=== PATIENT | female | born 1960 | race Two or more races ===

== ENCOUNTER 2018-12-29 18:16 | Emergency (ER) | payer OTHER ==
[~2018-12-29] VITALS: Ht 160 cm; Wt 83.9 kg
[~2018-12-29 18:16] MED LIST: ACYC800T PO; GABA300C18 PO; HYDR-3164 PO
[2018-12-29 19:15] VITALS: BP 112/56
--- NOTE | 2018-12-29 20:08 | RAD ---
Indication: Fell from a chair, pain to the left mid posterior ribs TECHNIQUE: PA chest and 3 views of the left wrist COMPARISON: None FINDINGS: Heart is normal in size. Lungs are clear. No pneumothorax or pleural effusion. No acute fractures. IMPRESSION: No acute findings. Electronically signed by: Jonnathan Adkins DO (12/29/2018 8:05 PM) [facility]
[2018-12-29] MEDS ORDERED: CYCL5TAB PO (20:23)
[2018-12-29] MEDS ORDERED: TRAM50TA PO (20:23)
--- NOTE | 2018-12-29 20:24 | PHYS DOC ---
Past Medical History Past Medical History: Cancer (RUFINO CARLSONLEVAR Liu SEC REPORTING CONSULTANT) Past Surgical History: No Surgical History (RANDY CARLSON Noe MARISCAL) Alcohol Use: None Drug Use: None (RANDY CARLSON Noe MARISCAL) Adult General Chief Complaint Chief Complaint: MECHANICAL FALL HPI HPI Patient is a 58 year old female who presents with pain in her left ribs after she was standing on a wheeled chair in her kitchen and fell. She denies loss of consciousness or other injury. She states the pain is worse with deep inspiration. (RANDY CARLSON SEC REPORTING CONSULTANT) Review of Systems Review of Systems Constitutional: Denies fever or chills [] Respiratory: Denies cough or shortness of breath [] Cardiovascular: No additional information not addressed in HPI [] GI: Denies abdominal pain, nausea, vomiting, bloody stools or diarrhea [] : Denies dysuria or hematuria [] Musculoskeletal: See history of present illness Integument: Denies rash or skin lesions [] Neurologic: Denies headache, focal weakness or sensory changes [] Endocrine: Denies polyuria or polydipsia [] All other systems were reviewed and found to be within normal limits, except as documented in this note. (RUFNIO CARLSONLEVAR Liu APRN) Allergies Allergies Allergies Coded Allergies Type Severity Reaction Last Updated Verified No Known Drug Allergies 10/28/16 No (SALMA PARKER Jr. DO) Physical Exam Physical Exam Constitutional: Well developed, well nourished, no acute distress, non-toxic appearance. [] Cardiovascular:Heart rate regular rhythm, no murmur [] Lungs & Thorax: Bilateral breath sounds clear to auscultation [] Abdomen: Bowel sounds normal, soft, tenderness to anterior left rib cage with palpation, no gross deformities noted Skin: Warm, dry, no erythema, no rash. [] Back: No tenderness, no CVA tenderness. [] Extremities: No tenderness, no cyanosis, no clubbing, ROM intact, no edema. [] Neurologic: Alert and oriented X 3, normal motor function, normal sensory function, no focal deficits noted. [] Psychologic: Affect normal, judgement normal, mood normal. [] (GUY CARLSONDAVONTE Liu APRN) Current Patient Data Vital Signs Vital Signs Date Time Temp Pulse Resp B/P (MAP) Pulse Ox O2 Delivery O2 Flow Rate FiO2 12/29/18 19:15 98.3 82 18 112/56 (74) 97 Room Air 98.3 (SALMA PARKER Jr., DO) EKG EKG [] (RANDY CARLSON APRN) Radiology/Procedures Radiology/Procedures []Signed PATIENT: BRITT TERRY ACCOUNT: [id number] : 1960 LOCATION: ER AGE: 58 SEX: F EXAM STATUS: REG ER ORD. PHYSICIAN: RANDY CARLSON APRN REASON: fell from a chair, pain to left mid posterior ribs PROCEDURE: RIBS LEFT AND PA CHEST Indication: Fell from a chair, pain to the left mid posterior ribs TECHNIQUE: PA chest and 3 views of the left wrist COMPARISON: None FINDINGS: Heart is normal in size. Lungs are clear. No pneumothorax or pleural effusion. No acute fractures. IMPRESSION: No acute findings. Electronically signed by: Jonnathan Adkins DO (12/29/2018 8:05 PM) [facility] DICTATED and SIGNED BY: JONNATHAN ADKINS DO DATE: 12/29/182003 (RANDY CARLSON APRN) Course & Med Decision Making Course & Med Decision Making Pertinent Labs and Imaging studies reviewed. (See chart for details) [] (RANDY CARLSON APRN) Dragon Disclaimer Dragon Disclaimer This electronic medical record was generated, in whole or in part, using a voice recognition dictation system. (RANDY CARLSON APRN) Departure Departure Impression: Primary Impression: Contusion Disposition: 01 HOME, SELF-CARE Condition: STABLE Referrals: FE MADDEN MD (PCP) Patient Instructions: Contusion Additional Instructions: Take the medication as directed. Do not drive or operate heavy machinery while taking this medication. The muscle relaxant might make you very sleepy. Follow- up with your primary care provider for a recheck if not improving in one week. Return to the emergency department if worsening. Scripts Tramadol Hcl (TRAMADOL HCL) 50 Mg Tablet 50 MG PO DAILY PRN for PAIN, #14 TAB 0 Refills Prov: RANDY CARLSON APRN 12/29/18 Cyclobenzaprine Hcl (CYCLOBENZAPRINE HCL) 5 Mg Tablet 1 TAB PO QHS for pain, #30 TAB Prov: RANDY CARLSON APRN 12/29/18 Attending Signature Attending Signature I have reviewed the PA/INSURANCE HEALTHCARE CONSULTANT's note and plan of care. I was available for consultation as needed during the patient's visit in the emergency department. I agree with the clinical impression, plan, and disposition. (SALMA PARKER Jr. DO) RANDY CARLSON APRN Dec 29, 2018 20:24 SALMA PARKER Jr. DO Jan 06, 2019 10:23
== END 2018-12-29 20:35 | disposition home or self-care (01) ==
LOC: ER 18:16
DX: S20.212A Contusion of left front wall of thorax, initial encounter (principal); W07.XXXA Fall from chair, initial encounter; Y93.89 Activity, other specified; Y92.000 Kitchen of unspecified non-institutional (private) residence as the place of occurrence of the external cause; Y99.8 Other external cause status
CPT/HCPCS: 71101; 99283

== ENCOUNTER → 2019-01-30 | Outpatient (CLI) | payer OTHER ==
[~2019-01-30] MED LIST changes: +CYCL5TAB PO; +TRAM50TA PO
--- NOTE | 2019-01-31 08:57 | RAD ---
DATE: 01/30/2019 EXAM: DIGITAL SCREEN BILAT W/CAD HISTORY: Previous left breast cancer COMPARISON: 04/16/2016 This study was interpreted with the benefit of Computerized Aided Detection (CAD). Breast Density: SCATTERED The breast parenchyma shows scattered fibroglandular densities. Breast parenchyma level B. FINDINGS: An old breast biopsy marker is again noted in the retroareolar region on the left. A small left breast nodule located just posterior to this marker is unchanged. Mild distortion of the anterior aspect of the left breast is unchanged and is presumably post therapeutic. No new or enlarging breast densities are seen. No suspicious microcalcifications are evident. IMPRESSION: Stable mammograms without evidence of malignancy. BI-RADS CATEGORY: 2 BENIGN FINDING(S) RECOMMENDED FOLLOW-UP: 12M 12 MONTH FOLLOW-UP PQRS compliance statement: Patient information was entered into a reminder system with a target due date for the next mammogram. Mammography is a sensitive method for finding small breast cancers, but it does not detect them all and is not a substitute for careful clinical examination. A negative mammogram does not negate a clinically suspicious finding and should not result in delay in biopsying a clinically suspicious abnormality. "Our facility is accredited by the [employer] Mammography Program."
== END | disposition home or self-care (01) ==
LOC: MAMMO 07:44
PROVIDERS: ATTEND Family Medicine
DX: Z12.31 Encounter for screening mammogram for malignant neoplasm of breast (principal); N63.20 Unspecified lump in the left breast, unspecified quadrant; Z85.3 Personal history of malignant neoplasm of breast
CPT/HCPCS: 77067

== ENCOUNTER → 2019-05-10 | Outpatient (CLI) | payer OTHER ==
--- NOTE | 2019-05-10 12:45 | RAD ---
Abdominal ultrasound HISTORY: Left-sided abdominal pain. TECHNIQUE: Routine multiplanar sequences are obtained. FINDINGS: Pancreas, aorta and inferior vena cava are poorly visualized due to obesity and bowel gas. Echogenic shadowing structure within the gallbladder compatible with a large at least 2 cm calculus. The calculus demonstrates mobility. No significant gallbladder wall thickening. Liver is echogenic compatible with fatty infiltration, no gross enlargement. No significant biliary ductal dilatation. Right kidney measures 11.5 seen longitudinal without hydronephrosis. Spleen is not enlarged. Left kidney measures 11.9 seen longitudinal without hydronephrosis. IMPRESSION: 1. Poor visualization of structures, particularly at the midline, due to obesity bowel gas. 2. Findings compatible with cholelithiasis. 3. Hepatic steatosis. Electronically signed by: Ramon Reveles MD (05/10/2019 12:42 PM) [id number]
== END | disposition home or self-care (01) ==
LOC: US 08:41
PROVIDERS: ATTEND Family Medicine
DX: K76.0 Fatty (change of) liver, not elsewhere classified (principal); E66.9 Obesity, unspecified
CPT/HCPCS: 76700

== ENCOUNTER 2019-06-09 08:14 | Day surgery (SDC) | payer OTHER ==
[~2019-06-09] VITALS: Ht 160 cm; Wt 83.5 kg
[~2019-06-09 08:14] MED LIST changes: +ACETAMINOPHEN 500 MG TABLET PO PRN; +ALEN70TA3 PO; +BUPIVACAINE-EPI 0.25%-1:200000 MPF 30 ML VIAL. IJ ONE; +CHOL10003 PO; +HYDROmorphone 2 MG/ML VIAL IV PRN; +INDOCYANINE GREEN 2.5 MG in TOTAL VOLUME SYRINGE 1 ML IVP ONE; +IV RINGERS,LACTATED 1000ML 1,000 ML IV SCH; +LIDOCAINE 1% PF 2 ML VIAL. ID PRN; +MORPHINE SULFATE 2 MG/ML VIAL. IV PRN; +NAPR-514 PO; +ONDANSETRON PF 4 MG/2 ML VIAL. IV PRN; +PANT40TA6 PO; +PROCHLORPERAZINE 10 MG/2 ML VIAL. IV PRN; +fentaNYL PF VIAL 100 MCG/2 ML VIAL IV PRN
[2019-06-09] MEDS ORDERED: ROCURONIUM 50 MG/5 ML VIAL. ONE (08:45)
[2019-06-09] MEDS ORDERED: LIDOCAINE 2% PF 5 ML VIAL. ONE (08:45)
[2019-06-09] MEDS ORDERED: DEXAMETHASONE SOD PHOS 20 MG/5 ML VIAL. ONE (08:45)
[2019-06-09] MEDS ORDERED: PROPOFOL 20 ML IV ONE (08:45)
[2019-06-09] MEDS ORDERED: fentaNYL PF VIAL 100 MCG/2 ML VIAL ONE (08:46)
[2019-06-09] MEDS ORDERED: MIDAZOLAM HCL/PF 2 MG/2 ML VIAL. ONE (08:48)
[2019-06-09] MEDS ORDERED: ONDANSETRON PF 4 MG/2 ML VIAL. ONE (08:49)
[2019-06-09] MEDS ORDERED: DEXAMETHASONE SOD PHOS 4 MG/ML VIAL ONE (08:49)
[2019-06-09] MEDS ORDERED: SURGICEL HEMOSTAT 4X8 EACH. ONE (08:51)
[2019-06-09] MEDS ORDERED: KETAMINE HCL IN NACL, ISO-OSM 50 MG/5 ML SYRINGE ONE (10:13)
[2019-06-09] MEDS ORDERED: ePHEDrine PF IN SALINE 50 MG/10 ML SYRINGE. IV ONE (10:38)
[2019-06-09] MEDS ORDERED: NEOSTIGMINE METHYLSULFATE 5 MG/5 ML SYRINGE. ONE (10:40)
[2019-06-09] MEDS ORDERED: GLYCOPYRROLATE 1 MG/5 ML VIAL. ONE (10:40)
--- NOTE | 2019-06-09 11:21 | PDOC4 ---
Operative Note Operative Note Date: 06/09/2019 Preoperative diagnosis: Chronic cholecystitis Postoperative diagnosis: Same Procedure: Robotic-assisted laparoscopic cholecystectomy Surgeon: Alec Specimen: Gallbladder Dictation: Patient is a 59-year-old female said right upper quadrant abdominal pain and ultrasound showing gallstones the procedure of robotic-assisted laparoscopic cholecystectomy was explained to the patient detail risk benefits were also discussed including bleeding infection injury to intra-abdominal contents possibly necessitating further open operations alternatives to this procedure also discussed with patient who seemed to understand and gave both verbal and written consent to have the procedure performed. Patient was taken to the operating room placed in supine position general anesthesia was initiated once patient was sleep and intubated her abdomen was prepped and draped usual sterile fashion using ChloraPrep. An area just below the umbilicus was injected with quarter percent Marcaine with epinephrine incision was made 11 blade scalpel varies needle was placed within the abdomen creating pneumoperitoneum once this complete 8mm da Petros port was placed in a da Petros camera was placed within the abdomen was inspected no other abdomen maladies were noted. 8mm da Petros port was placed in the right mid abdomen and 8mm da Petros port was placed in the left mid abdomen that eventually robot was then brought in and docked all port sites surgeon went to the robotic console using a grasper and an hook cautery. A 5 mm accessory port was placed in the right upper quadrant the dome of the gallbladder is grasped and retracted cephalad grasped the infundibulum the gallbladder exposing the triangle adherent tissues the triangle were taken down with the hook cautery exposing the cystic duct and cystic artery both were clipped with hemo-lock clips and transected the gallbladder was taken off the liver with a clot cautery placed in Endo Catch bag the right upper quadrant was irrigated and suctioned dry the surgeon went back to the surgical field and the robot was undocked a Endo Catch bag was placed through the right mid abdomen port gallbladder was placed within this Endo Catch bag and removed from the abdomen the pneumoperitoneum was reduced all ports removed the skin at all port sites were closed for septic and a Monocryl Mastisol Steri-Strips and island dressings were applied. Patient was awakened and asked bated operating room taken to recovery in stable condition all sponge instrument needle counts listed as correct estimate blood loss 10 mL DYAN MEHTA MD Jun 09, 2019 11:21
--- NOTE | 2019-06-09 11:23 | DISCH ---
DISCHARGE INSTRUCTIONS Condition on Discharge Condition on Discharge: Stable Activity After Discharge Activity Instructions for Disc: Avoid exertion Other activity instructions: no lifting more than 20 pounds for 2 weeks Diet after Discharge Diet after Discharge: Regular Wound Incision Care Other wound/incision instructi: May shower in 24 hours [facility]acting the [facility] after DC Call your doctor for: If your condition worsens Follow-Up Follow up with: Dr. Mehta in 2 weeks DYAN MEHTA MD Jun 09, 2019 11:23
[2019-06-09] MEDS ORDERED: SEVOFLURANE 61 TO 120 MINUTES. IH ONE (11:32)
[2019-06-09] MEDS: fentaNYL PF VIAL 100 MCG/2 ML VIAL IV PRN ×2 (11:59→12:28)
[2019-06-09] MEDS ORDERED: oxyCODONE/APAP 5/325 1 TAB TABLET PO PRN ×2 (12:30)
[2019-06-09] MEDS ORDERED: oxyCODONE/APAP 5/325 1 TAB TABLET PO ONE (12:30)
[2019-06-09] MEDS ORDERED: OXYC1TAB15 PO (12:42)
[2019-06-09 13:00] VITALS: BP 112/54
--- NOTE | 2019-06-12 14:07 | PATHOLOGY ---
[facility] Accession Number: [id number] . 01 Material submitted: . gallbladder - GALLBLADDER AND CONTENTS . 01 Clinical history: . Cholelithiasis . 02 Diagnosis: Gallbladder, cholecystectomy: - Cholelithiasis. - Cholesterolosis. - Chronic cholecystitis. . ([facility]; 06/12/2019) [facility]/06/12/2019 . 02 Comment: There is no evidence of malignancy. . ([facility]; 06/12/2019) . 02 Electronically signed: . Fahad Lin MD, Pathologist NPI- [id number] . 01 Gross description: . The specimen is received in formalin, labeled "Jeannie Walker, gallbladder and contents", is focally disrupted, collapsed gallbladder measuring 7.0 cm in length and 2.2 cm in maximum diameter with a wrinkled sandoval-jacques serosa. The cystic duct is dilated. The gallbladder lumen contains scant yellow green bile and an oval dark green-brown calculus measuring 1.8 x 1.2 x 1.0 cm. The mucosa is sandoval-green with cholesterolosis. The wall is 0.1 cm in average thickness. Representatively submitted in A1. ([facility]; 06/09/2019) [facility] . 02 Pathologist provided ICD-10: K80.10, K82.4 . 02 CPT . 512936 Specimen Comment: A courtesy copy of this report has been sent to Specimen Comment: [phone], . Specimen Comment: Report sent to / DR MADDEN Performed at: [address], [place], [place] [id number] MD Chuck Quiroz MD Phone: [phone] Performed at: 02 [facility] [address] [place], [place] [id number] MD Fahad Lin MD Phone: [phone]
== END 2019-06-09 14:00 | disposition home or self-care (01) ==
LOC: SURG 08:14
PROVIDERS: ATTEND Surgery
DX: K80.10 Calculus of gallbladder with chronic cholecystitis without obstruction (principal); Z85.3 Personal history of malignant neoplasm of breast; Z98.890 Other specified postprocedural states; Z88.8 Allergy status to other drugs, medicaments and biological substances
CPT/HCPCS: 47562; 88304; A7015; J0171; J1100; J2001; J2250; J2405; J2704; J2710; J3010; J3490; J7030; S2900

== ENCOUNTER 2019-11-02 14:19 | Emergency (ER) | payer OTHER ==
[~2019-11-02] VITALS: Ht 160 cm; Wt 82.6 kg
[~2019-11-02 14:19] MED LIST changes: -ACETAMINOPHEN 500 MG TABLET PO PRN; -BUPIVACAINE-EPI 0.25%-1:200000 MPF 30 ML VIAL. IJ ONE; -HYDROmorphone 2 MG/ML VIAL IV PRN; -INDOCYANINE GREEN 2.5 MG in TOTAL VOLUME SYRINGE 1 ML IVP ONE; -IV RINGERS,LACTATED 1000ML 1,000 ML IV SCH; -LIDOCAINE 1% PF 2 ML VIAL. ID PRN; -MORPHINE SULFATE 2 MG/ML VIAL. IV PRN; -ONDANSETRON PF 4 MG/2 ML VIAL. IV PRN; +OXYC1TAB15 PO; -PROCHLORPERAZINE 10 MG/2 ML VIAL. IV PRN; -fentaNYL PF VIAL 100 MCG/2 ML VIAL IV PRN
--- NOTE | 2019-11-02 15:41 | EKG ---
[facility] [address] [place] [address] Test Date: 2019-11-02 Test Time: 15:27:20 Pat Name: BRITT TERRY Department: Room: Gender: F Drywall Foreman: : 1960 Requested By: SALMA PARKER Order Number: [id number] Reading MD: Measurements Intervals [place] Rate: 65 P: 38 [place]: 140 QRS: 49 QRSD: 80 T: 51 QT: 378 QTc: 394 Interpretive Statements SINUS RHYTHM NORMAL ECG RI6.01 No previous ECG available for comparison
--- NOTE | 2019-11-02 15:47 | RAD ---
CHEST PA LATERAL History: Cough Comparison: 12/21/2018 PA view of the chest with left unilateral RIBS . Findings: The cardiomediastinal silhouette is normal. Pulmonary vasculature is normal. The lungs are clear. No pleural effusion or pneumothorax is seen. There is no acute bone abnormality. Scoliosis noted. Left axillary surgical clips are present. IMPRESSION: No acute cardiopulmonary process. Electronically signed by: Davis Negrete MD (11/02/2019 3:44 PM) [facility]
--- NOTE | 2019-11-02 16:08 | PHYS DOC ---
Past Medical History Past Medical History: Cancer Additional Past Medical Histor: L breast ca, osteoporosis Past Surgical History: Other Additional Past Surgical Histo: lumpectomy- L breast Alcohol Use: None Drug Use: None Adult General Chief Complaint Chief Complaint: Congestion HPI HPI Patient is a 59-year-old female who presents with complaint of sinus congestion and drainage along with productive cough. Patient is also indicated that she has had some chest discomfort over the last couple of days that she describes as tightness. She states that the pain is primarily on the left side of her chest. She denies any radiation of the pain. Patient feels like she is been running a fever but is not sure.[] Review of Systems Review of Systems Constitutional: Positive subjective fever and chills [] HENT: Positive congestion and sore throat [] Respiratory: Positive cough without shortness of breath [] Cardiovascular: No additional information not addressed in HPI [] GI: Denies abdominal pain, nausea, vomiting or diarrhea [] Integument: Denies rash or skin lesions [] Neurologic: Denies headache, focal weakness or sensory changes [] All other systems were reviewed and found to be within normal limits, except as documented in this note. Allergies Allergies Allergies Coded Allergies Type Severity Reaction Last Updated Verified aspirin Adverse Reaction Intermediate EARS RINGING 06/09/19 Yes Milk Containing Products Adverse Reaction Unknown STOMACH UPSET/DIARRHEA 06/09/19 Yes Physical Exam Physical Exam Constitutional: Well developed, well nourished, no acute distress, non-toxic appearance. [] HENT: Normocephalic, atraumatic, bilateral external ears normal, oropharynx moist, no oral exudates, nose normal. [] Eyes: PERRLA, EOMI, conjunctiva normal, no discharge. [] Neck: Normal range of motion, no tenderness, supple. [] Cardiovascular: Regular rate and rhythm[] Lungs & Thorax: Fine rhonchi are noted in the lung bases bilaterally to auscultation [] Abdomen: Bowel sounds normal, soft, no tenderness. [] Skin: Warm, dry, no erythema, no rash. [] Extremities: No tenderness, no cyanosis, no clubbing, ROM intact. [] Neurologic: Alert and oriented X 3, no focal deficits noted. [] Current Patient Data Vital Signs Vital Signs Date Time Temp Pulse Resp B/P (MAP) Pulse Ox O2 Delivery O2 Flow Rate FiO2 11/02/19 16:40 88 18 157/78 (104) 97 Room Air 11/02/19 15:28 98.3 98.3 Lab Values Laboratory Tests Test 11/02/19 15:35 Influenza Type A Antigen Negative (NEGATIVE) Influenza Type B Antigen Negative (NEGATIVE) EKG EKG EKG demonstrates normal sinus rhythm with rate of 65.[] Radiology/Procedures Radiology/Procedures [] Impressions: PROCEDURE: CHEST PA & LATERAL CHEST PA LATERAL History: Cough Comparison: 12/21/2018 PA view of the chest with left unilateral RIBS . Findings: The cardiomediastinal silhouette is normal. Pulmonary vasculature is normal. The lungs are clear. No pleural effusion or pneumothorax is seen. There is no acute bone abnormality. Scoliosis noted. Left axillary surgical clips are present. IMPRESSION: No acute cardiopulmonary process. Electronically signed by: Davis Negrete MD (11/02/2019 3:44 PM) [facility] Course & Med Decision Making Course & Med Decision Making Pertinent Labs and Imaging studies reviewed. (See chart for details) [] Dragon Disclaimer Dragon Disclaimer This electronic medical record was generated, in whole or in part, using a voice recognition dictation system. Departure Departure Impression: Primary Impression: Acute bronchitis Disposition: 01 HOME, SELF-CARE Condition: STABLE Referrals: FE MADDEN MD (PCP) Patient Instructions: Acute Bronchitis Scripts Guaifenesin/Codeine Phosphate (Codeine-Guaifen 10-100 mg/5 ml) 120 Ml Liquid 5 ML PO PRN Q6HRS PRN for cough and congestion MDD 20 Milliliter(s) for 6 Days, #120 ML 0 Refills Prov: SALMA PARKER Jr. DO 11/02/19 Azithromycin (ZITHROMAX) 250 Mg Tablet 1 PKG PO UD, #6 TAB Prov: SALMA PARKER Jr. DO 11/02/19 Problem Qualifiers Primary Impression: Acute bronchitis Bronchitis organism: unspecified organism Qualified Codes: J20.9 - Acute bronchitis, unspecified SALMA PARKER Jr. DO Nov 02, 2019 16:08
[2019-11-02 16:23] LABS: INFLUENZA A PATIENT NEGATIVE (NEGATIVE); INFLUENZA B PATIENT NEGATIVE (NEGATIVE)
[2019-11-02] MEDS ORDERED: GUAI120L35 PO (16:30)
[2019-11-02] MEDS ORDERED: AZIT250T PO (16:30)
[2019-11-02 16:40] VITALS: BP 157/78
== END 2019-11-02 16:50 | disposition home or self-care (01) ==
LOC: ER 14:19
DX: J20.9 Acute bronchitis, unspecified (principal); R07.89 Other chest pain; Z85.3 Personal history of malignant neoplasm of breast; Z91.011 Allergy to milk products; Z88.6 Allergy status to analgesic agent
CPT/HCPCS: 71046; 87804; 93005; 99285-25

== ENCOUNTER 2020-08-29 11:30 | Emergency (ER) | payer SELFPAY ==
[~2020-08-29] VITALS: Ht 160 cm; Wt 84.0 kg
[~2020-08-29 11:30] MED LIST changes: +AZIT250T PO; +GUAI120L35 PO
[2020-08-29 11:43] VITALS: BP 128/65
--- NOTE | 2020-08-29 12:49 | RAD ---
Single view of the chest. 08/29/2020 12:28 PM Indication: Reason: fever, cough x2 days / Spl. Instructions: / History: Comparison: 2 views of the chest November 02, 2019 Findings: There is no focal consolidation. There is no pleural effusion or pneumothorax. The cardiomediastinal silhouette and pulmonary vasculature are within normal limits. No acute osseous abnormalities are seen. Impression: No evidence of acute cardiopulmonary process. Electronically signed by: Elmer Good MD (08/29/2020 12:46 PM) [id number]
--- NOTE | 2020-08-29 13:25 | ED.ADGEN ---
Past Medical History Past Medical History: Cancer Additional Past Medical Histor: L breast ca, osteoporosis Past Surgical History: Cholecystectomy, Other Additional Past Surgical Histo: lumpectomy- L breast Smoking Status: Never Smoker Alcohol Use: None Drug Use: None General Adult EDM: Chief Complaint: FEVER HPI: HPI: Patient is a 60 year old female who presents emergency department with c omplaints of a dry cough, and a fever of 99 degrees since yesterday. Patient reports that she recently traveled to [place] but denies any known contact with anyone who had influenza or COVID-19. The patient denies any body aches, fatigue, ear pain, sore throat, shortness of breath, chest pain, palpitations, nausea, vomiting, diarrhea, abdominal pain, or rash. She reports that she did have a mild headache yesterday but currently denies any headache. The patient denies any pain at this time. Review of Systems: Review of Systems: Complete ROS is negative unless otherwise noted in HPI. Allergies: Allergies: Allergies Coded Allergies Type Severity Reaction Last Updated Verified aspirin Adverse Reaction Intermediate EARS RINGING 06/09/19 Yes Milk Containing Products Adverse Reaction Unknown STOMACH UPSET/DIARRHEA 06/09/19 Yes Physical Exam: PE: See Above Constitutional: Well developed, well nourished, no acute distress, non-toxic appearance. [] HENT: Normocephalic, atraumatic, bilateral external ears normal, nose normal. [] Eyes: PERRLA, EOMI, conjunctiva normal, no discharge. [] Neck: Normal range of motion, no stridor. [] Cardiovascular:Heart rate regular rhythm Lungs & Thorax: Respirations even and unlabored, no retractions, no respiratory distress Skin: Warm, dry, no erythema, no rash. [] Extremities: No cyanosis, ROM intact, no edema. [] Neurologic: Alert and oriented X 3, no focal deficits noted. [] Psychologic: Affect normal, judgement normal, mood normal. [] Current Patient Data: Labs: Laboratory Tests Test 08/29/20 13:33 Influenza Type A Antigen Negative (NEGATIVE) Influenza Type B Antigen Negative (NEGATIVE) Vital Signs: Vital Signs Date Time Temp Pulse Resp B/P (MAP) Pulse Ox O2 Delivery O2 Flow Rate FiO2 08/29/20 11:43 99.4 65 20 128/65 (86) 97 Room Air 99.4 EKG: EKG: [] Heart Score: Risk Factors: Risk Factors: DM, Current or recent (<one month) smoker, HTN, HLP, family history of CAD, obesity. Risk Scores: Score 0 - 3: 2.5% MACE over next 6 weeks - Discharge Home Score 4 - 6: 20.3% MACE over next 6 weeks - Admit for Clinical Observation Score 7 - 10: 72.7% MACE over next 6 weeks - Early Invasive Strategies Radiology/Procedures: Radiology/Procedures: PROCEDURE: CHEST AP ONLY Single view of the chest. 08/29/2020 12:28 PM Indication: Reason: fever, cough x2 days / Spl. Instructions: / History: Comparison: 2 views of the chest November 02, 2019 Findings: There is no focal consolidation. There is no pleural effusion or pneumothorax. The cardiomediastinal silhouette and pulmonary vasculature are within normal limits. No acute osseous abnormalities are seen. Impression: No evidence of acute cardiopulmonary process. [] Course & Med Decision Making: Course & Med Decision Making Pertinent Labs and Imaging studies reviewed. (See chart for details) 60-year-old female presents emergency room with complaints of a dry cough and fever for 2 days. Vital signs are stable in the emergency department. Chest x-ray reveals no acute findings. Influenza swab was negative. COVID-19 swab is pending. I advised the patient of her need to go home and quarantine until the results of the COVID-19 test are known and or her symptoms have resolved for greater than 48 hours. I encouraged her to return the emergency room if she developed developed a fever that did not respond to Tylenol or ibuprofen, or worsening symptoms such as shortness of breath. Patient verbalized an understanding of home care, medications, follow-up, and return to ED instructions and was in agreement with the plan of care. I have reviewed the PA/FORESTRY ADVISER's note and Plan of Care. I was available for consultation as needed during the patient's visit in the emergency department. I agree with the clinical impression, plans and disposition. [] Dragon Disclaimer: Dragon Disclaimer: This electronic medical record was generated, in whole or in part, using a voice recognition dictation system. Departure Departure Impression: Primary Impression: URI (upper respiratory infection) Additional Impression: Person under investigation for COVID-19 Disposition: 01 DC HOME SELF CARE/HOMELESS Condition: STABLE Referrals: FE MADDEN MD (PCP) Patient Instructions: Upper Respiratory Infection, Adult, [id number] Additional Instructions: You have been tested for or diagnosed with COVID-19. It is an infection caused by a new type of coronavirus. COVID-19 will cause cold-like or mild flu symptoms in most. It can cause more severe symptoms like problems breathing in some. There is no treatment for COVID-19. The body will clear the infection over time. Self-care will help to ease discomfort. Steps to Take: Self-Care Rest as needed. Healthy habits may help you feel better. Steps include: Choose healthy foods including fruits and vegetables. Drink water throughout the day. Get plenty of sleep each night. If you smoke, try to quit. It may ease breathing. Avoid alcohol. Keep Others Healthy The virus can spread to others. Droplets are released every time you sneeze or cough. The droplets can get into the mouth, nose, or eyes of people near you and lead to i nfection. To lower the chances of spreading COVID-19 to others: Stay at home until your doctor has said it is safe to leave. If you tested positive this will mean staying isolated until both of the following are true: At least 7 days have passed since the start of illness. You are free of fever for at least 72 hours without the use of medicine. During this time: - Avoid public areas, events, or transportation. Do not return to work or school until your doctor has said it is safe to do so. - Call ahead if you need to go to a medical center. Let them know you may have COVID-19. It will help them guide you where to go. They may also ask you to wear a facemask when you come to the office. - If you call for emergency medical services, let them know you may have COVID- 19. While at home: - Try to avoid close contact with others. Stay about 6 feet away. - If possible, spend most of your time in a separate room from others. - Use a face mask if you will be in close contact with others such as sharing a room or vehicle. - Have someone wipe down common surfaces in the home. Use household logistical engineer every day on areas like doorknobs, counters, or sinks. - Cough or sneeze into a tissue. Throw the tissue away right after use. If a tissue is not available, cough or sneeze into your elbow. - Wash your hands often. Wash them after sneezing or coughing. Use soap and water and wash for at least 20 seconds. Alcohol based hand mud cleaner operator can be used if soap and water is not available. - Do not prepare food for others. Avoid sharing personal items like forks, spoons, or toothbrushes. - Avoid close contact with pets while you are sick. There is no evidence of the virus passing to pets. This is a safety step until more is known about this virus. Isolation can be frustrating. Social interaction can help. Keep in touch with friends and family through phone and tech options. You can still interact with others in your home, just keep a safe distance of about 6 feet. Follow-up: Your doctors office will check in with you to see if there are any changes in your health. You may be asked to keep track of symptoms to share with them. They will also let you know when you are clear to be in public again. Problems to Look Out For: Contact your doctor if your recovery is not going as you expect. Get emergency care if you have problems such as: - Trouble breathing - Nonstop chest pain or pressure - Changes in awareness, confusion, or problems waking - Lips or face have bluish color - Worsening of symptoms If you think you have an emergency, call for emergency medical services right away. [place] [facility] [place] Problem Qualifiers Primary Impression: URI (upper respiratory infection) URI type: unspecified URI Qualified Codes: J06.9 - Acute upper respiratory infection, unspecified ABIDA DUGGAN APRN Aug 29, 2020 13:25 RIVAS OLMSTEAD MD Aug 29, 2020 15:38
[2020-08-29 14:48] LABS: INFLUENZA A PATIENT NEGATIVE (NEGATIVE); INFLUENZA B PATIENT NEGATIVE (NEGATIVE)
--- NOTE | 2020-08-30 11:14 | NUR ---
IP: Attempted to call COVID test results. No answer. Left a voicemail to return my call.
== END 2020-08-29 15:11 | disposition home or self-care (01) ==
LOC: ER 11:30
DX: U07.1 COVID-19 (principal); J06.9 Acute upper respiratory infection, unspecified; R50.9 Fever, unspecified; R51.9 Headache, unspecified; Z85.9 Personal history of malignant neoplasm, unspecified; Z90.49 Acquired absence of other specified parts of digestive tract; Z98.890 Other specified postprocedural states; Z91.011 Allergy to milk products
CPT/HCPCS: 71045; 87804; 99284; C9803; U0003

== ENCOUNTER 2020-09-11 17:59 | Emergency (ER) | payer SELFPAY ==
[~2020-09-11] VITALS: Ht 160 cm; Wt 83.2 kg
[2020-09-11] MEDS ORDERED: IV NORMAL SALINE 1000ML BAG 1,000 ML IV SCH (19:01)
--- NOTE | 2020-09-11 19:05 | PHYS DOC ---
Past Medical History Past Medical History: Cancer Additional Past Medical Histor: L breast ca, osteoporosis Past Surgical History: Cholecystectomy, Other Additional Past Surgical Histo: lumpectomy- L breast Smoking Status: Never Smoker Alcohol Use: None Drug Use: None General Adult EDM: Chief Complaint: SHORTNESS OF BREATH HPI: HPI: 60-year-old male past medical history significant for left breast cancer s/p lumpectomy (in remission), presents to the ED with complaints of persistent shortness of breath for the past week with associated weakness and fever and chills, some relief with Tylenol. Reports she tested negative for Covid 2 weeks ago. No underlying lung disease is not a tobacco smoker. States shortness of breath is worse with exertion and activity. Review of Systems: Review of Systems: Constitutional: Denies diaphoresis or rigors Eyes: Denies change in visual acuity. [] HENT: Denies nasal congestion or sore throat. [] Respiratory: Denies hemoptysis or syncope Cardiovascular: Denies chest pain or edema. [] GI: Denies abdominal pain, nausea, vomiting, bloody stools or diarrhea. [] : Denies dysuria. [] Musculoskeletal: Denies back pain or joint pain. [] Integument: Denies rash. [] Neurologic: Denies headache, focal weakness or sensory changes. [] Endocrine: Denies polyuria or polydipsia. [] Lymphatic: Denies swollen glands. [] Psychiatric: Denies depression or anxiety. [] Heart Score: Risk Factors: Risk Factors: DM, Current or recent (<one month) smoker, HTN, HLP, family history of CAD, obesity. Risk Scores: Score 0 - 3: 2.5% MACE over next 6 weeks - Discharge Home Score 4 - 6: 20.3% MACE over next 6 weeks - Admit for Clinical Observation Score 7 - 10: 72.7% MACE over next 6 weeks - Early Invasive Strategies Allergies: Allergies: Allergies Coded Allergies Type Severity Reaction Last Updated Verified aspirin Adverse Reaction Intermediate EARS RINGING 06/09/19 Yes Milk Containing Products Adverse Reaction Unknown STOMACH UPSET/DIARRHEA 06/09/19 Yes Physical Exam: PE: Constitutional: Well developed, well nourished, no acute distress, non-toxic appearance. [] HENT: Normocephalic, atraumatic, bilateral external ears normal, oropharynx moist, no oral exudates, nose normal. [] Eyes: PERRLA, EOMI, conjunctiva normal, no discharge. [] Neck: Normal range of motion, no tenderness, supple, no stridor. [] Cardiovascular:Heart rate regular rhythm, no murmur [] Lungs & Thorax: Bilateral breath sounds clear to auscultation [] Abdomen: Bowel sounds normal, soft, no tenderness, no masses, no pulsatile masses. [] Skin: Warm, dry, no erythema, no rash. [] Back: No tenderness, no CVA tenderness. [] Extremities: No tenderness, no cyanosis, no clubbing, ROM intact, no edema. [] Neurologic: Alert and oriented X 3, normal motor function, normal sensory function, no focal deficits noted. [] Psychologic: Affect normal, judgement normal, mood normal. [] EKG: EKG: Sinus rhythm at 70 bpm, no axis deviation, normal intervals, no T wave inversions, no ST elevations or ST depressions Radiology/Procedures: Radiology/Procedures: []IMAGING REPORT Signed PATIENT: RAMSES TERRYUNT: [id number] : 1960 LOCATION: ER AGE: 60 SEX: F EXAM STATUS: REG ER ORD. PHYSICIAN: OLIVA SAUCEDO DO REASON: soa -covid positive PROCEDURE: PORTABLE CHEST 1V Exam: Chest one view INDICATION: Short of air, Covid positive TECHNIQUE: Frontal view of the chest Comparisons: 08/29/2020 FINDINGS: The cardiomediastinal silhouette and pulmonary vessels are within normal limits. Subtle patchy airspace disease at the lung bases. No pleural effusion. IMPRESSION: Subtle bibasilar airspace disease, may relate to atelectasis or developing infectious process. Electronically signed by: Em Almodovar MD (09/11/2020 8:49 PM) [facility] DICTATED and SIGNED BY: EM ALMODOVAR MD DATE: 09/11/202048 IMAGING REPORT Signed PATIENT: RAMSES TERRYUNT: [id number] : 1960 LOCATION: ER AGE: 60 SEX: F EXAM STATUS: REG ER ORD. PHYSICIAN: OLIVA SAUCEDO DO REASON: soa, elevated d-dimer PROCEDURE: CT ANGIOGRAPHY CHEST Exam: CT of chest with contrast INDICATION: Short of air, elevated d-dimer TECHNIQUE: Sequential axial images through the head obtained following the administration of 91 mL of Isovue-370 IV contrast. Sagittal and coronal reformatted images were reconstructed from the axial data and reviewed. 3-D reformatted images were reconstructed from the axial data and reviewed. Comparisons: Chest x-ray same day FINDINGS: Visualized portions of the thyroid are unremarkable. No enlarged mediastinal lymph nodes are identified. Heart size is normal. No pericardial effusion. Thoracic aorta has a normal course and caliber. Pulmonary artery is not enlarged. Evaluation for pulmonary embolus limited secondary to extensive respiratory motion. No pulmonary embolus identified within the main or lobar pulmonary arteries. Airways are patent. Patchy groundglass opacity noted in the lungs bilaterally. No pneumothorax. Strandy opacities portion lungs likely representing atelectasis. No pleural effusion. Visualized upper abdomen is unremarkable. No suspicious osseous lesions or acute fractures. IMPRESSION: 1. No pulmonary embolus identified within the main or lobar pulmonary arteries. Rotation is described above. 2. Patchy bilateral ground glass opacity. Infectious or inflammatory in etiology. Correlate for atypical/viral causes. Exposure: One or more of the following in the visualized dose reduction techniques were utilized for this examination: 1. Automated exposure control 2. Adjustment of the MA and/or KV according to patient size 3. Use of iterative of reconstructive technique Electronically signed by: Em Almodovar MD (09/11/2020 9:39 PM) [facility] DICTATED and SIGNED BY: EM ALMODOVAR MD DATE: 09/11/202138 Course & Med Decision Making: Course & Med Decision Making Pertinent Labs and Imaging studies reviewed. (See chart for details) COVID-19 CRITERIA: The patient was evaluated during the global COVID-19 pandemic, and that diagnosis was suspected/considered upon their initial presentation. Their evaluation, treatment and testing was consistent with current guidelines for patients who present with complaints or symptoms that may be related to COVID-19. Patient speaking in full sentences, afebrile, no tachycardia and requires no oxygen supplementation. Influenza test negative. Has no tachycardia and does not meet SIRS criteria. Troponin negative. D-dimer elevated and CTA of the chest shows no pulmonary emboli but is consistent with Covid presentation. Will prescribe albuterol as needed for shortness of breath. Strict ED return precautions were given for worsening chest pain or back pain, syncope, increased work of breathing, strokelike symptoms or swelling.. Encouraged urgent outpatient follow-up with PMD and [specialist]. Life- threatening processes were considered but are low suspicion at this time, given history and physical exam. Pt was educated on all prescription medications and adverse effects. All patient's questions were answered and pt was stable at time of discharge. Life/limb-threatening differential includes but is not limited to, ACS, dysrhythmia, pneumothorax or hemothorax, pulmonary embolus, pneumonia, bronchoconstriction, pulmonary edema, angioedema, epiglottitis, tracheitis, Yo's angina, RPA/NET PROGRAMMER ANALYST, anaphylaxis, angioedema, cardiac tamponade or murmurs, pericarditis, myocarditis, poisoning or toxicity, sepsis or auto immune/neurologic disease. I spoken with the patient and her caregivers. I explained the patient's condition, diagnoses and treatment plan based on the information available to me at this time. I have answered the patient and her caregiver's questions and addressed any concerns. The patient and her caregivers have a good understanding of patient's diagnosis, condition and treatment plan as can be expected at this point. Vital signs have been stable. Patient's condition is stable and appropriate for discharge from the emergency department. Patient will pursue further outpatient evaluation with primary care physician or other designated or consulting physician as outlined in the discharge instructions. The patient and/or caregivers are agreeable to this plan of care and follow-up instructions have been explained in detail. The patient and/or caregivers have received these instructions in written form and have expressed an understanding of the discharge instructions. The patient and/or caregivers are aware that any significant change of condition or worsening of symptoms should prompt immediate return to this or the closest emergency department or call to 911. Reginaldo Disclaimer: Reginaldo Disclaimer: This electronic medical record was generated, in whole or in part, using a voice recognition dictation system. Departure Departure Impression: Primary Impression: Suspected COVID-19 virus infection Additional Impression: Dyspnea Disposition: 01 DC HOME SELF CARE/HOMELESS Condition: STABLE Referrals: FE MADDEN MD (PCP) followup in 5-7 days for reeval Patient Instructions: Shortness of Breath Additional Instructions: EMERGENCY DEPARTMENT GENERAL DISCHARGE INSTRUCTIONS Thank you for coming to [facility] Emergency Department (ED) today and trusting us with you care. We trust that you had a positive experience in our Emergency Department. If you wish to speak to the department management, you may call the Director at [phone]. YOUR FOLLOW UP INSTRUCTIONS ARE FOLLOWS: 1. Do you have a private Doctor? If you do not have a private doctor, please ask for a resource list of physicians or clinics that may be able to assist you with follow up care. 2. The Emergency Physicain has interpreted your x-rays. The X-Ray specialist will also review them. If there is a change in the findings, you will be notified in 48 hours when at all possible. 3. A lab test or culture has been done, your results will be reviewed and you will be notified if you need a change in treatment. ADDITIONAL INSTRUCTIONS AND INFORMATION: 1. Your care today has been supervised by a physician who is specially trained in emergency care. Many problems require more than one evaluation for a complete diagnosis and treatment. We recommend that you schedule your follow up appointment as recommended to ensure complete treatment of you illness or injury. If you are unable to obtain follow up care and continue to have a problem, or if your condition worsens, we recommend that you return to the ED. 2. We are not able to safely determine your condition over the phone nor are we able to give sound medical advice over the phone. For these safety reasons, if you call for medical advice we will ask you to come to the ED for further evaluation. 3. If you have any questions regarding these discharge instructions please call the ED at [phone]. SAFETY INFORMATION: In the interest of safety, wellness, and injury prevention; we encourage you to wear your sealbelt, if you smoke; quite smoking, and we encourage family to use a protective helmet for bicycling and other sporting events that present an increased risk for head injury. IF YOUR SYMPTOMS WORSEN OR NEW SYMPTOMS DEVELOP, OR YOU HAVE CONCERNS ABOUT YOUR CONDITION; OR IF YOUR CONDITION WORSENS WHILE YOU ARE WAITING FOR YOUR FOLLOW UP APPOINTMENT; EITHER CONTACT YOUR PRIMARY CARE DOCTOR, THE PHYSICIAN WHOSE NAME AND NUMBER YOU WERE GIVEN, OR RETURN TO THE ED IMMEDIATELY. Scripts Benzonatate (TESSALON PERLE) 100 Mg Capsule 1 CAP PO TID for cough, #21 CAP Prov: OLIVA SAUCEDO DO 09/11/20 Albuterol Sulfate (VENTOLIN HFA INHALER) 18 Gm Hfa.aer.ad 2 PUFF INH QID PRN for shortness of breath, #1 INHALER 0 Refills Prov: OLIVA SAUCEDO DO 09/11/20 OLIVA SAUCEDO DO Sep 11, 2020 19:05
[2020-09-11 19:44] LABS: BASO # 0.1 x10^3/uL (0.0-0.2); BASO % 1 % (0-3); EOS % 0 % (0-3); HEMATOCRIT 42.1 % (36.0-47.0); HEMOGLOBIN 14.1 g/dL (12.0-15.5); LYMPH # 1.1 x10^3/uL (1.0-4.8); LYMPH % 22 % (24-48); MEAN CORPUSCULAR HEMOGLOBIN 28 pg (25-35); MEAN CORPUSCULAR HGB CONC 34 g/dL (31-37); MEAN CORPUSCULAR VOLUME 83 fL (79-100); MONO # 0.4 x10^3/uL (0.0-1.1); MONO % 7 % (0-9); NEUT # 3.6 x10^3/uL (1.8-7.7); NEUT % 70 % (31-73); PLATELET COUNT 278 x10^3/uL (140-400); RED BLOOD COUNT 5.08 x10^6/uL (3.50-5.40); RED CELL DISTRIBUTION WIDTH 12.5 % (11.5-14.5); WHITE BLOOD COUNT 5.1 x10^3/uL (4.0-11.0)
[2020-09-11 19:53] LABS: CALCIUM 9.8 mg/dL (8.5-10.1); CREATININE 0.7 mg/dL (0.6-1.0); GFR 85.9; POTASSIUM 4.4 mmol/L (3.5-5.1)
[2020-09-11 20:00] LABS: INFLUENZA A PATIENT NEGATIVE (NEGATIVE); INFLUENZA B PATIENT NEGATIVE (NEGATIVE)
[2020-09-11 20:07] LABS: ALBUMIN 3.5 g/dL (3.4-5.0); ALBUMIN/GLOBULIN RATIO 0.8 (1.0-1.7); TOTAL BILIRUBIN 0.8 mg/dL (0.2-1.0); TOTAL PROTEIN 8.1 g/dL (6.4-8.2)
--- NOTE | 2020-09-11 20:53 | RAD ---
Exam: Chest one view INDICATION: Short of air, Covid positive TECHNIQUE: Frontal view of the chest Comparisons: 08/29/2020 FINDINGS: The cardiomediastinal silhouette and pulmonary vessels are within normal limits. Subtle patchy airspace disease at the lung bases. No pleural effusion. IMPRESSION: Subtle bibasilar airspace disease, may relate to atelectasis or developing infectious process. Electronically signed by: Em Tapia MD (09/11/2020 8:49 PM) [facility]
[2020-09-11] MEDS ORDERED: IOHEXOL 350 MG/ML 100 ML VIAL. IV ONE (21:00)
[2020-09-11] MEDS ORDERED: CONTRAST GIVEN. MC PRN (21:00)
--- NOTE | 2020-09-11 21:42 | RAD ---
Exam: CT of chest with contrast INDICATION: Short of air, elevated d-dimer TECHNIQUE: Sequential axial images through the head obtained following the administration of 91 mL of Isovue-370 IV contrast. Sagittal and coronal reformatted images were reconstructed from the axial data and reviewed. 3-D reformatted images were reconstructed from the axial data and reviewed. Comparisons: Chest x-ray same day FINDINGS: Visualized portions of the thyroid are unremarkable. No enlarged mediastinal lymph nodes are identified. Heart size is normal. No pericardial effusion. Thoracic aorta has a normal course and caliber. Pulmonary artery is not enlarged. Evaluation for pulmonary embolus limited secondary to extensive respiratory motion. No pulmonary embolus identified within the main or lobar pulmonary arteries. Airways are patent. Patchy groundglass opacity noted in the lungs bilaterally. No pneumothorax. Strandy opacities portion lungs likely representing atelectasis. No pleural effusion. Visualized upper abdomen is unremarkable. No suspicious osseous lesions or acute fractures. IMPRESSION: 1. No pulmonary embolus identified within the main or lobar pulmonary arteries. Rotation is described above. 2. Patchy bilateral ground glass opacity. Infectious or inflammatory in etiology. Correlate for atypical/viral causes. Exposure: One or more of the following in the visualized dose reduction techniques were utilized for this examination: 1. Automated exposure control 2. Adjustment of the MA and/or KV according to patient size 3. Use of iterative of reconstructive technique Electronically signed by: Em Tapia MD (09/11/2020 9:39 PM) [facility]
[2020-09-11] MEDS ORDERED: BENZ100C PO (23:18)
[2020-09-11] MEDS ORDERED: VENTOLIN HFA18 GM INH (23:18)
[2020-09-11 23:22] VITALS: BP 91/58
== END 2020-09-11 23:30 | disposition home or self-care (01) ==
LOC: ER 17:59
DX: R06.00 Dyspnea, unspecified (principal); Z20.828 Contact with and (suspected) exposure to other viral communicable diseases; R06.02 Shortness of breath; R50.9 Fever, unspecified; R53.1 Weakness; Z85.9 Personal history of malignant neoplasm, unspecified; Z98.890 Other specified postprocedural states; Z90.49 Acquired absence of other specified parts of digestive tract; Z90.89 Acquired absence of other organs
CPT/HCPCS: 36415; 71045; 71275; 80053; 82550; 83880; 84484; 85025; 85379; 87804; 93005; 96360; 99285; J7030

== ENCOUNTER 2021-02-05 07:46 | Emergency (ER) | payer SELFPAY ==
[~2021-02-05] VITALS: Ht 160 cm; Wt 81.8 kg
[~2021-02-05 07:46] MED LIST changes: +BENZ100C PO; +VENTOLIN HFA18 GM INH
--- NOTE | 2021-02-05 08:18 | RAD ---
AP chest. HISTORY: Chest pain AP view was taken of the chest. Lungs are clear. Heart is normal in size. There is no pleural effusio n. IMPRESSION: 1. No acute chest disease. Electronically signed by: Sammy Charlton MD (02/05/2021 8:15 AM) [id number]
--- NOTE | 2021-02-05 08:27 | PHYS DOC ---
Past Medical History Past Medical History: Cancer Additional Past Medical Histor: L breast ca, osteoporosis Past Surgical History: Cholecystectomy, Other Additional Past Surgical Histo: lumpectomy- L breast Smoking Status: Never Smoker Alcohol Use: None Drug Use: None General Adult EDM: Chief Complaint: DIZZY/LIGHT HEADED HPI: HPI: This is a pleasant 61-year-old female who just prior to arrival had an episode of dizziness associated with chest pain and abdominal pain. She describes 2 to 3-second. Where she was in the bathroom and she felt pressure in the chest felt lightheaded and had abdominal pain. This resolved spontaneously and she cur rently has no symptoms. She was able to ambulate to the emergency department and comes in POV. Currently she denies any discomfort and is without any symptoms. She denies any facial drooping slurred speech vertigo or changes in motor or sensory function of her arms or legs. She denies difficulty speaking or difficulty ambulating. She denies having palpitations. She denies any rashes or fever. She also describes a chronic headache for multiple months which was not acute today and was not severe today. It was not a thunderclap headache. She describes it as a mild headache that is a throbbing nonradiating pain. Review of systems negative for headache rash vomiting fevers chills. She reports having a bowel movement today. She reports it was mildly loose. She denies constipation. She denies blood in her stools. All other review of systems negative. ED course: 61-year-old female presenting with an episode of chest pain and abdominal pain associated with dizziness. EKG shows sinus rhythm with a regular rate. ST segments congruent. Not suggestive of acute ischemia. Blood work unremarkable. Head CT unremarkable. Abdominal CT is unremarkable. D-dimer within normal limits. Troponin is within normal limits. Repeat troponin shows no changes. Patient remains asymptomatic in the emergency department without any pain resting comfortably with normal vital signs. We will have the patient follow-up with her doctor tomorrow for reexamination. She is to return if her symptoms return or she has any concerns. On final examination the patient was resting comfortably. She was sleeping when I initially walked into the room. She denies having any symptoms has a normal physical examination and is without distress. Review of Systems: Review of Systems: Constitutional: Denies fever or chills. [] Eyes: Denies change in visual acuity. [] HENT: Denies nasal congestion or sore throat. [] Respiratory: Denies cough or shortness of breath. [] Cardiovascular: Denies edema. [] GI: Denies nausea, vomiting, bloody stools or diarrhea. [] : Denies dysuria. [] Musculoskeletal: Denies back pain or joint pain. [] Integument: Denies rash. [] Neurologic: Denies focal weakness or sensory changes. [] Endocrine: Denies polyuria or polydipsia. [] Lymphatic: Denies swollen glands. [] Psychiatric: Denies depression or anxiety. [] Heart Score: C/O Chest Pain: Yes HEART Score for Chest Pain: HEART Score for Chest Pain Response (Comments) Value History Slighlty/Non-Suspicious 0 ECG Normal 0 Age >45 - < 65 1 Risk Factors No Risk Factors 0 Troponin < Normal Limit 0 Total 1 Risk Factors: Risk Factors: DM, Current or recent (<one month) smoker, HTN, HLP, family history of CAD, obesity. Risk Scores: Score 0 - 3: 2.5% MACE over next 6 weeks - Discharge Home Score 4 - 6: 20.3% MACE over next 6 weeks - Admit for Clinical Observation Score 7 - 10: 72.7% MACE over next 6 weeks - Early Invasive Strategies Allergies: Allergies: Allergies Coded Allergies Type Severity Reaction Last Updated Verified aspirin Adverse Reaction Intermediate EARS RINGING 06/09/19 Yes Milk Containing Products Adverse Reaction Unknown STOMACH UPSET/DIARRHEA 06/09/19 Yes Physical Exam: PE: Constitutional: Well developed, well nourished, no acute distress, non-toxic appearance. [] HENT: Normocephalic, atraumatic, bilateral external ears normal, oropharynx moist, no oral exudates, nose normal. [] Eyes: PERRLA, EOMI, conjunctiva normal, no discharge. [] Neck: Normal range of motion, no tenderness, supple, no stridor. [] Cardiovascular:Heart rate regular rhythm, no murmur [] Lungs & Thorax: Bilateral breath sounds clear to auscultation [] Abdomen: Bowel sounds normal, soft, no tenderness, no masses, no pulsatile masses. [] Skin: Warm, dry, no erythema, no rash. [] Back: No tenderness, no CVA tenderness. [] Extremities: No tenderness, no cyanosis, no clubbing, ROM intact, no edema. [] Neurologic: Mental status: Awake oriented and alert x3. Cranial nerves: Extraocular movements intact, eyebrows lizzy bilaterally, smile symmetric, uvula elevation nl, shoulder shrug intact bilaterally, tongue protrusion normal. No skew. Mild lateral nystagmus with right lateral gaze. (3 BEATS). Clear speech. Normal [id number]. Sensation: equal and normal in all extremities Strength: 5/5 in upper and lower extremities bilaterally Psychologic: Affect normal, judgement normal, mood normal. [] Current Patient Data: Vital Signs: Vital Signs Date Time Temp Pulse Resp B/P (MAP) Pulse Ox O2 Delivery O2 Flow Rate FiO2 02/05/21 08:05 98.0 66 18 118/56 (76) 99 Room Air 98.0 EKG: EKG: [] Radiology/Procedures: Radiology/Procedures: [] Course & Med Decision Making: Course & Med Decision Making Pertinent Labs and Imaging studies reviewed. (See chart for details) [] Dragon Disclaimer: Dragon Disclaimer: This electronic medical record was generated, in whole or in part, using a voice recognition dictation system. Departure Departure Impression: Primary Impression: Chest pain Additional Impressions: Abdominal pain Lightheaded Disposition: 01 DC HOME SELF CARE/HOMELESS Condition: STABLE Referrals: FE MADDEN MD (PCP) Patient Instructions: Abdominal Pain, Chest Pain (Nonspecific), Dizziness, [id number] Additional Instructions: EMERGENCY DEPARTMENT GENERAL DISCHARGE INSTRUCTIONS Follow-up with your primary physician tomorrow for reexamination. Return to the emergency department if you have any new or concerning findings. Thank you for coming to [facility] Emergency Department (ED) today and trusting us with you care. We trust that you had a positive experience in our Emergency Department. If you wish to speak to the department management, you may call the Director at [phone]. Follow up is important in emergency/acute care visits. This condition should be evaluated by your primary care physician and any necessary consulting services for continued management within a few days (1-2) after discharge. Return to the emergency department if you have any new or concerning symptoms including but not limited to fever, chills, nausea, vomiting, intractable pain, any new rashes, chest pain, shortness of breath, uncontrolled bleeding, difficulty breathing, and/or vision loss. 1. Do you have a private Doctor? If you do not have a private doctor, please ask for a resource list of physicians or clinics that may be able to assist you with follow up care. 2. If a lab test or culture has been done and does not come back immediately, your results will be reviewed and you will be notified if you need a change in treatment. 3. Your care today has been supervised by a physician who is specially trained in emergency care. Many problems require more than one evaluation for a complete diagnosis and treatment. We recommend that you schedule your follow up appointment as recommended to ensure complete treatment of you illness or injury. If you are unable to obtain follow up care and continue to have a p roblem, or if your condition worsens, we recommend that you return to the ED. 4. We are not able to safely determine your condition over the phone nor are we able to give sound medical advice over the phone. For these safety reasons, if you call for medical advice we will ask you to come to the ED for further evaluation. IF YOUR SYMPTOMS WORSEN OR NEW SYMPTOMS DEVELOP, OR YOU HAVE CONCERNS ABOUT YOUR CONDITION; OR IF YOUR CONDITION WORSENS WHILE YOU ARE WAITING FOR YOUR FOLLOW UP APPOINTMENT; EITHER CONTACT YOUR PRIMARY CARE DOCTOR, THE PHYSICIAN WHOSE NAME AND NUMBER YOU WERE GIVEN, OR RETURN TO THE ED IMMEDIATELY. IDA LO MD Feb 05, 2021 08:27
[2021-02-05 08:37] LABS: BASO % 0 % (0-3); EOS # 0.1 x10^3/uL (0.0-0.7); EOS % 1 % (0-3); HEMATOCRIT 40.6 % (36.0-47.0); HEMOGLOBIN 13.4 g/dL (12.0-15.5); LYMPH # 1.6 x10^3/uL (1.0-4.8); LYMPH % 33 % (24-48); MEAN CORPUSCULAR HEMOGLOBIN 28 pg (25-35); MEAN CORPUSCULAR HGB CONC 33 g/dL (31-37); MEAN CORPUSCULAR VOLUME 84 fL (79-100); MONO # 0.3 x10^3/uL (0.0-1.1); MONO % 6 % (0-9); NEUT % 60 % (31-73); PLATELET COUNT 188 x10^3/uL (140-400); RED BLOOD COUNT 4.81 x10^6/uL (3.50-5.40); RED CELL DISTRIBUTION WIDTH 12.8 % (11.5-14.5)
[2021-02-05 08:49] LABS: CALCIUM 9.2 mg/dL (8.5-10.1); CREATININE 0.6 mg/dL (0.6-1.0); GFR 102.3; POTASSIUM 4.2 mmol/L (3.5-5.1)
[2021-02-05 08:54] LABS: ALBUMIN 3.7 g/dL (3.4-5.0); DIRECT BILIRUBIN 0.1 mg/dL (0.0-0.2); TOTAL BILIRUBIN 0.3 mg/dL (0.2-1.0); TOTAL PROTEIN 7.6 g/dL (6.4-8.2)
[2021-02-05] MEDS ORDERED: CONTRAST GIVEN. MC PRN (09:00)
[2021-02-05] MEDS ORDERED: IOHEXOL 300 MG/ML 100ML VIAL. IV ONE (09:00)
--- NOTE | 2021-02-05 09:22 | RAD ---
Exam Date: 02/05/2021 8:[address] HEAD/BRAIN WO Indication: Reason: headache and lightheaded / Spl. Instructions: / History: TECHNIQUE: Head CT was performed without intravenous contrast. One or more of the following dose re duction techniques were utilized: *Automated exposure control (AEC) *Adjustment of mA and/or kV according to patient size *Use of iterative reconstruction technique *CT scan done according to ALARA, or ALARA/IMAGE GENTLY FINDINGS: The ventricles and sulci are normal for the patient's stated age. There is no evidence of acute int racranial hemorrhage, extra-axial collection, mass effect, midline shift, or acute territorial infarc t. No lesion of the skull base or the calvarium is seen. The visualized paranasal sinuses, mastoid ai r cells and orbits are normal in appearance. IMPRESSION: No evidence for acute intracranial abnormality. Electronically signed by: Jah Morrison MD (02/05/2021 9:20 AM) [id number]
--- NOTE | 2021-02-05 09:28 | RAD ---
Exam Date: 02/05/2021 8:[address] ABDOMEN+PELVIS W Indication: Reason: lower abd pain / Spl. Instructions: omni 300 75ml / History: TECHNIQUE: CT examination of the abdomen and pelvis was performed following the administration of no nionic intravenous contrast. One or more of the following dose reduction techniques were utilized: *Automated exposure control (AEC) *Adjustment of mA and/or kV according to patient size *Use of iterative reconstruction technique *CT scan done according to ALARA, or ALARA/IMAGE GENTLY FINDINGS: The visualized lung bases are clear. The gallbladder is not identified, presumably due to prior cholecystectomy. The liver, spleen, pancreas, adrenal glands and kidneys are normal. Urinary bladder is normal in appearance. There is no bowel obstruction or inflammation. The appendix is normal. No significant atherosclerotic calcifications are seen. No lymphadenopathy or ascites is seen. Degenerative changes are seen in the spine. IMPRESSION: No evidence of acute intra-abdominal pathology. Electronically signed by: Jah Morrison MD (02/05/2021 9:26 AM) [id number]
--- NOTE | 2021-02-05 09:55 | EKG ---
[facility] [address] [place] [address] Test Date: 2021-02-05 Test Time: 08:16:21 Pat Name: BRITT TERRY Department: Room: Gender: F Tester Vibrator Equipment: : [id number] Requested By: IDA LO Order Number: [id number] Reading MD: Measurements Intervals [place] Rate: 63 P: 30 [place]: 152 QRS: 42 QRSD: 84 T: 32 QT: 398 QTc: 410 Interpretive Statements SINUS RHYTHM OTHERWISE NORMAL ECG RI6.01 No previous ECG available for comparison
[2021-02-05 10:42] VITALS: BP 115/56
== END 2021-02-05 10:59 | disposition home or self-care (01) ==
LOC: ER 07:46
DX: R07.89 Other chest pain (principal); R10.9 Unspecified abdominal pain; R42 Dizziness and giddiness; Z90.49 Acquired absence of other specified parts of digestive tract; Z88.6 Allergy status to analgesic agent; Z91.011 Allergy to milk products
CPT/HCPCS: 36415; 70450; 71045; 74177; 80048; 80076; 83690; 84484; 85025; 85379; 93005; 99285; Q9967